=== PATIENT | female | born 1965 | race Caucasian/White ===

== ENCOUNTER → 2017-11-04 07:57 | Outpatient (CLI) | payer BC | END | disposition home or self-care (01) | LOC: D.US 07:57 | DX: R10.11 Right upper quadrant pain (principal) ==

== ENCOUNTER → 2017-11-07 13:08 | Outpatient (CLI) | payer BC | END | disposition home or self-care (01) | LOC: D.NM 13:08 | DX: R10.10 Upper abdominal pain, unspecified (principal) ==

== ENCOUNTER → 2018-10-03 06:52 | Outpatient (CLI) | payer BC | END | disposition home or self-care (01) | LOC: D.US 06:52 | DX: N39.0 Urinary tract infection, site not specified (principal) ==

== ENCOUNTER 2018-11-27 08:00 | Outpatient (CLI) | payer BC | END 2018-11-27 09:00 | disposition home or self-care (01) | LOC: D.MAMMO 08:00 | PROVIDERS: ATTEND Family Medicine | DX: Z12.31 Encounter for screening mammogram for malignant neoplasm of breast (principal) ==

== ENCOUNTER 2018-12-21 19:00 | Outpatient (CLI) | payer BC | END 2018-12-21 23:59 | disposition home or self-care (01) | LOC: D.MAMMO 19:00 | PROVIDERS: ATTEND Family Medicine | DX: R92.8 Other abnormal and inconclusive findings on diagnostic imaging of breast (principal) ==

== ENCOUNTER 2020-12-01 13:30 | Outpatient (CLI) | payer BC | END 2020-12-01 23:59 | disposition home or self-care (01) | LOC: D.MAMMO 13:30 | PROVIDERS: ATTEND Family Medicine | DX: Z12.31 Encounter for screening mammogram for malignant neoplasm of breast (principal) ==